=== PATIENT | female | born 1995 | race Caucasian/White ===

== ENCOUNTER 2023-08-21 10:00 | Inpatient (IN) | payer BC ==
[~2023-08-21] VITALS: Ht 167.6 cm; Wt 107.3 kg
[2023-09-01] VITALS (42 sets, daily range): BP systolic 91–147; BP diastolic 52–91; PULSE 61–89; TEMP 96.8–98.3
[2023-09-01] MEDS ORDERED: LR 1,000 ML IV SCH (06:30)
[2023-09-01] MEDS ORDERED: LR & Oxytocin 500 ML IV SCH (06:30)
--- NOTE | 2023-09-01 06:30 | NUR ---
PT AMBULATES ONTO THE UNIT FOR SCHEDULED INDUCTION.PT DENIES LOF/VB AND CONTRACTIONS.PT REPORTS POSITIVE MOVEMENT.PT ADVISED TO CHANGE INTO GOWN AND POC REVIEWED WITH PT.PT VERBALIZES UNDERSTANDING.EFM AND TOCO APPLIED TRACING CATEGORY 1.
[2023-09-01 07:32] LABS: BASO % 0.2 % (0.0-2.0); EOS # 0.2 K/mm3 (0.0-0.7); EOS % 2.8 % (0.0-4.0); GRAN # 5.1 K/mm3 (1.4-6.5); GRAN % 60.2 % (42.2-75.2); HEMATOCRIT 38.7 % (37.0-47.0); HEMOGLOBIN 13.3 g/dl (12.5-16.0); LYMPH # 2.5 K/mm3 (1.2-3.4); LYMPH % 28.7 % (20.0-51.0); MEAN CELL VOLUME 90 fl (80.0-100.0); MEAN CORPUSCULAR HEMOGLOBIN 31 pg (27-31); MEAN CORPUSCULAR HGB CONC 34 g/dl (33.0-37.0); MEAN PLATELET VOLUME 10.3 fl (7.4-10.4); MONO # 0.7 K/mm3 (0.1-0.6); MONO % 7.9 % (1.7-9.3); PLATELET COUNT 242 K/mm3 (130-400); REDCELL DISTRIBUTION WIDTH-CV 12.5 % (11.5-14.5)
--- NOTE | 2023-09-01 16:29 | NUR ---
DR TIMMONS BEDSIDE.SVE /-1. 1623 AROM PERFORMED WITH CLEAR FLUID.PT TOELRATED PROCEDURE WELL.
--- NOTE | 2023-09-01 17:03 | NUR ---
1625 GIOVANNI LAMBERT CALLED FOR REQUEST OF AN EPIDURAL PT SITTING UP ON THE SIDE OF THE BED FOR EPIDURAL PLACEMENT.LR BOLUS INFUSING PER PROTOCOL.PULSE OX TRACING.BP TRACING EVERY 5 MINUTES.DIFFICULTY TRACING EFM AND TOCO DUE TO MATERNAL POSITIONING. 1702 SINGLE SHOT ADMINISTERED PER GIOVANNI LAMBERT.PT TOLERATED PROCEDURE WELL.
[2023-09-01] MEDS ORDERED: ROPivacaine PF 0.2% 200 ML IV ONE (17:07)
[2023-09-02] VITALS (17 sets, daily range): BP systolic 101–129; BP diastolic 56–85; PULSE 67–99; TEMP 97.8–98.6
[2023-09-02] MEDS ORDERED: Ondansetron 4 MG/2 ML VIAL IV ONE (01:30)
--- NOTE | 2023-09-02 02:32 | NUR ---
0029: SVE: COMPLETE/+1 AND +2 WITH CONTRACTION. 0120: PT PLACED IN LITHOTOMY POSITION WITH USE OF STIRRUPS AND BRICEÑO CATH REMOVED 0122: PT BEGAN PUSHING WITH RN COACHING AT BS. GOOD DESCENT NOTED WITH MATERNAL PUSHING EFFORTS. PT INTERMITTENTLY VOMITING DURING PUSHING. 0205: DR. TIMMONS CALLED TO COME FOR DELIVERY OF . 0212: DR. TIMMONS ARRIVES AT BS. DELIVERY TABLE COUNTED BY DR. TIMMONS 0227: OF VIABLE FEMAILE INFANT. DR. TIMMONS BULB SUCTION INFNATS MOUTH AND NOSE THEN PLACED ONTO MATERNAL ABDOMEN TO WAITING NURSERY RN. WARM, DRIED, AND STIMULATED BY NURSERY RN. 2+ MIN OF DELAYED CORD CLAMPING. CORD DOUBLE CLAMPED AND CUT BY DR. TIMMONS. INFANT MOVED SKIN TO SKIN ON MOTHERS CHEST. 0232: SPONTANEOUS PLACENTA DELIVERY. PP PIT INFUSION STARTED PER PROTOCOL. PERINEUM EVALUATED BY DR. TIMMONS FOR LACERATIONS. 2ND DEGREE PERINEAL AND LEFT LABIAL LACERATION WITH EXTENSION INTO VAGINAL WALL NOTED AND REPAIRED BY DR. TIMMONS. SUPERFICIAL HEMOSTATIC RIGHT LABIAL LACERATION NOTED NOT REQUIRING REPAIR. FINAL DELIVERY TABLE COUNT BY DR. TIMMONS CORRECT. CLEAN CHUX AND ICE-ERMIAS PAD PLACED UNDER/ON PT PERINEUM AND PT RETURNED TO SEMI-FOWLERS. BONDING WELL WITH .
[2023-09-02] MEDS ORDERED: Naloxone 0.4 MG/ML VIAL IV PRN ×2 (02:45→03:00)
[2023-09-02] MEDS ORDERED: ePHEDrine 50 MG/10 ML VIAL IV PRN (02:45)
[2023-09-02] MEDS ORDERED: diphenhydrAMINE 50 MG/ML 1 ML VIAL IV PRN (02:45)
[2023-09-02] MEDS ORDERED: diphenhydrAMINE 25 MG CAP PO PRN (02:45)
[2023-09-02] MEDS ORDERED: Ondansetron 4 MG/2 ML VIAL IV PRN (02:45)
[2023-09-02] MEDS ORDERED: Phenylephrine/Mineral Oil/Petrolatum 57 GM TUBE RC PRN (03:00)
[2023-09-02] MEDS ORDERED: Measles/Mumps/Rubella Virus Vaccine Live w Diluent 0.5 ML VIAL SQ SCH (03:00)
[2023-09-02] MEDS ORDERED: Witch Hazel 50% Pads Bulk TUB TP PRN (03:00)
[2023-09-02] MEDS ORDERED: oxyCODONE 5 MG TAB PO PRN (03:00)
[2023-09-02] MEDS ORDERED: Acetaminophen 500 MG TAB PO SCH (03:00)
[2023-09-02] MEDS ORDERED: Magnes Hydrox (MOM) 80 MG/ML 30 ML CUP PO PRN (03:00)
[2023-09-02] MEDS ORDERED: Loratadine 10 MG TAB PO PRN (03:00)
[2023-09-02] MEDS ORDERED: Mag/Al Hydrox/Simeth Susp 30 ML CUP PO PRN (03:00)
[2023-09-02] MEDS ORDERED: Ibuprofen 800 MG TAB PO SCH (03:00)
[2023-09-02] MEDS ORDERED: Sennosides/Docusate 8.6-50 MG TAB PO SCH (08:00)
--- NOTE | 2023-09-02 13:20 | NUR ---
Data: Patient accepted Corporate Operations Compliance Manager visit offered during Corporate Operations Compliance Manager rounds for baby blessing. Assessment: Parents joyful for the arrival of their baby. Plan of Care: Corporate Operations Compliance Manager provided blessing and certificate that can be framed later. Patient thanked Corporate Operations Compliance Manager. Chaplains will remain available as needed/requested while Patient is admitted to this hospital.
[2023-09-02] MEDS ORDERED: traZODone 50 MG TAB PO PRN (21:00)
[2023-09-03] VITALS: BP 105/67; PULSE 65; TEMP 97.7
[2023-09-03 07:45] VITALS: BP 101/65; PULSE 68; TEMP 97.8
[2023-09-03] MEDS ORDERED: IBU800 M1 PO (10:03)
--- NOTE | 2023-09-03 11:30 | NUR ---
DISCHARGE TEACHING COMPLETED. EDUCATED THE OFFICE WILL CALL AND MAKE A 6 WEEK FOLLOW APPOINTMENT. EDUCATED ON PRESCRIPTION. QUESTIONS INVITED AND ANSWERED.
== END 2023-09-03 12:30 | disposition home or self-care (01) | DRG 807 ==
LOC: LDR 09-01 06:20 → OB 09-01 09:57
PROVIDERS: ADMIT Obstetrics & Gynecology
PROC: 10E0XZZ Delivery of Products of Conception, External Approach (ICD-10-PCS; principal; 2023-09-02)
PROC: 0KQM0ZZ Repair Perineum Muscle, Open Approach (ICD-10-PCS; 2023-09-02)
PROC: 0UQMXZZ Repair Vulva, External Approach (ICD-10-PCS; 2023-09-02)
PROC: 3E033VJ Introduction of Other Hormone into Peripheral Vein, Percutaneous Approach (ICD-10-PCS; 2023-09-02)
PROC: 10907ZC Drainage of Amniotic Fluid, Therapeutic from Products of Conception, Via Natural or Artificial Opening (ICD-10-PCS; 2023-09-02)
DX: O48.0 Post-term pregnancy (principal); Z37.0 Single live birth; Z3A.40 40 weeks gestation of pregnancy; O99.214 Obesity complicating childbirth; O70.1 Second degree perineal laceration during delivery; O62.4 Hypertonic, incoordinate, and prolonged uterine contractions
CPT/HCPCS: J2405; J2590; J2795; J7120